=== PATIENT | female | born 1995 | race African-American/Black ===

== ENCOUNTER 2025-03-24 22:42 | Emergency (ER) | payer MEDICAID ==
[~2025-03-24] VITALS: Ht 157.5 cm; Wt 73.0 kg
[~2025-03-24 22:42] MED LIST: ACET-3161 PO; DOCU-138 PO; FERR325C PO; IBUP-779 PO
[2025-03-24 22:45] VITALS: O2SAT 98
[2025-03-24] MEDS: LORAZEPAM 1MG TABLET PO ONE (23:45)
[2025-03-25 01:35] LABS: *AMPHETAMINES SCREEN URINE NEGATIVE (NEGATIVE); *BARBITURATES SCREEN URINE NEGATIVE (NEGATIVE); *BENZODIAZEPINES SCREEN URINE NEGATIVE (NEGATIVE); *COCAINE SCREEN URINE PRESUMPTIVE POSITIVE (NEGATIVE)
[2025-03-25 01:36] LABS: CANNABINOID URINE SCREEN PRESUMPTIVE POSITIVE (NEGATIVE); ECSTASY MDMA SCREEN URINE NEGATIVE (NEGATIVE); METHADONE URINE SCREEN NEGATIVE (NEGATIVE); OPIATES URINE SCREEN NEGATIVE (NEGATIVE); PHENCYCLIDINE URINE SCREEN NEGATIVE (NEGATIVE)
[2025-03-25 04:05] LABS: BASOPHILS % 0.5 % (0.0-2.0); EOSINOPHILS % 7.5 % (0.0-5.0); HEMATOCRIT. 27.6 % (36.0-48.0); HEMOGLOBIN. 8.4 g/dL (12.0-16.0); LYMPHOCYTES % 24.0 % (20.0-50.0); MEAN PLATELET VOLUME 8.7 fl (7.4-10.4); MONOCYTES % 8.2 % (2.0-8.0); NEUTROPHILS % 59.8 % (40.0-76.0); PLATELET 409 x1000/uL (130-400); RED BLOOD CELL COUNT 4.43 mill/uL (4.2-5.4); RED CELL DISTRIBUTION WIDTH 21.5 % (11.6-14.6)
[2025-03-25 04:07] LABS: ADD RBC MORPHOLOGY YES
[2025-03-25 04:18] LABS: CREATININE 0.8 mg/dL (0.6-1.0); HCG SCREEN NEGATIVE
[2025-03-25 04:19] LABS: ETHANOL BLOOD < 10 mg/dL (<10); UREA NITROGEN BLOOD 9 mg/dL (9-23)
[2025-03-25 05:38] LABS: PLATELET ESTIMATE SLIGHTLY INCREASED
[2025-03-25] MEDS ORDERED: HYDROXYZINE 25MG TABLET PO PRN (11:30)
[2025-03-25] MEDS: SERTRALINE HCL 25MG TABLET PO SCH (12:06)
[2025-03-25 12:18] VITALS: BP 117/81; PULSE 80; RESP 18; TEMP 36.7; O2SAT 99
== END 2025-03-25 12:20 ==
LOC: ER 22:42
DX: F32.A Depression, unspecified (principal); F41.9 Anxiety disorder, unspecified; F20.9 Schizophrenia, unspecified; Z20.822 Contact with and (suspected) exposure to COVID-19; Z79.899 Other long term (current) drug therapy
CPT/HCPCS: 99285; 36415; 87426; 80305; 80048; 84703; 85025; G0480; 80320